=== PATIENT | male | born 1980 | race African-American/Black ===

== ENCOUNTER 2021-05-23 14:14 | Outpatient (RCR) | payer OTHER, MEDICARE, MEDICAID, SELFPAY ==
--- NOTE | 2021-05-23 15:44 | PTOPEVAL ---
PHYSICAL THERAPY INITIAL EVALUATION. Thank you for referring Yimi Fletcher to [facility].? The patient is scheduled to be seen for therapy? 1x/every other week for 4 weeks. Please review, sign, date and return this plan of care LISSETH. I agree with and certify that the following plan of care is medically necessary. Referring Physician Date Attending Provider: Viviane Hernandez, MD *PT Outpatient Evaluation Start: 05/23/21 Evaluation Information Diagnosis Morbid Obesity, CHF Onset chronic Subjective Information Pt states he has CHF, obesity, Query Text:As Reported By Patient/ and had Covid in Feb. Family He states for the last few years since his diagnosis of CHF he has good days and bad days as far as energy. Since he had Covid he has mostly bad days. He declines pain at this time, he said the main concern is shortness of breath . Pt states last summer/fall he was able to walk 3 miles a few times a week but has not done this in a long time. Pt reports he would like to loose 20 pounds. Pain Assessment Pain Score Pain Score 0: Self Report Upper Extremity Range of Motion General Upper Extremity Range of Motion WFL/Left,WFL/Right Lower Extremity Range of Motion General Lower Extremity Range of Motion WFL/Left,WFL/Right Lower Extremity Muscle Strength Testing Gross Lower Extremity Strength Grossly 5/5 in B LE. Balance Assessment Time in Seconds 22 5 Time Sit to Stand Comments without the use of UEs Gait Assessment 2 Minute Walk Total Distance Walked (feet) 510 2 Minute Walk Gait Speed Score (feet/sec 4.25 2 Minute Walk Test Comments No pain reported after, reports increase SOB. Rehab Teaching Additional Rehab Teaching Comments Beginner walking program given this date as well as healthy food choices PT Clinical Summary DAYANARA is a 40 y/o male who presents today for his initial evaluation with a diagnosis of morbid obesity, with a history complicated by CHF. Today he demonstrates normal ROM and strength of his extremities. He demonstrates a normal gait pattern but has a decreased gait spe
--- NOTE | 2021-06-08 15:00 | PCPTNOTE ---
Patient did not show up for scheduled appointment this date; patient answered phone called stating he forgot but currently doesn't have transportation so wouldn't of been able to make it to his appointment anyway.
--- NOTE | 2021-06-20 14:02 | PCPTNOTE ---
Patient did not show up for scheduled re-evaluation this date. A voicemail was left 06/20/21 with instructions to reschedule, voicemail stated if he does not reschedule in the next week he will be discharged and will need a new order to return.
--- NOTE | 2021-06-27 13:46 | PCPTNOTE ---
Attending Provider: Viviane HernandezMD Patient:Yimi Fletcher Jr. Date of :1980 Patient has not returned for any further treatments since 05/23/2021, therefore he will be discharged at this time. Patient?s initial visit was on 05/23/2021 14:15 and he had a total of 1 visits. Thank you for referring this patient to [facility]. Please review, sign, date and return this discharge summary LISSETH. I have been updated about the patient's current status and I agree with discharge from the above service at this time. Referring Physician Date
== END 2021-06-28 09:17 | disposition home or self-care (01) ==
LOC: ANHPT 14:14
PROVIDERS: PCP Internal Medicine; Visit Provider Internal Medicine
DX: E66.01 Morbid (severe) obesity due to excess calories (principal)
CPT/HCPCS: 97161

== ENCOUNTER 2022-12-11 15:46 | Outpatient (CLI) | payer MEDICARE, MEDICAID, SELFPAY ==
--- NOTE | ~2022-12-11 | XR_ITS ---
Thoracic spine: Clinical Indication: Back pain AP and lateral views were performed. No fracture is seen. There is normal alignment of the vertebrae. The intervertebral disc spaces appe ar normal. Paravertebral soft tissues appear normal. Impression: No significant abnormalities noted. Reviewed, dictated and finalized at [facility]. Impression: No significant abnormalities noted.
--- NOTE | ~2022-12-11 | XR_ITS ---
Right Knee Technique: AP, lateral, and sunrise views were obtained. Clinical History: Pain Findings: No fracture or dislocation is seen. Osseous alignment is anatomic. Joint spaces are preserv ed without degenerative or erosive change. There is mild prepatellar soft tissue edema. No joint effu royce is seen. Impression: Mild prepatellar soft tissue edema, nonspecific. No osseous or articular abnormality evident. Reviewed, dictated and finalized at location . Impression: Mild prepatellar soft tissue edema, nonspecific. No osseous or articular abnormality evident.
== END 2022-12-11 15:47 | disposition home or self-care (01) ==
PROVIDERS: PCP Internal Medicine; Visit Provider Internal Medicine
DX: M70.41 Prepatellar bursitis, right knee (principal); M54.6 Pain in thoracic spine; W19.XXXA Unspecified fall, initial encounter
CPT/HCPCS: 72070; 73562